=== PATIENT | female | born 1995 | race Two or more races ===

== ENCOUNTER 2019-11-23 09:16 | Emergency (ER) | payer SELFPAY ==
[~2019-11-23] VITALS: Ht 157.5 cm; Wt 61.2 kg
[2019-11-23 09:18] VITALS: BP 110/70
--- NOTE | 2019-11-23 09:19 | NUR ---
ED Nurse Note: Pt brought in by ambulance [id number] from home c/o lower back pain for 3 days. Unk cause, denies trauma. Takes advil for pain with no relief. Pt. aaox4. ambulatory. no s/s of acute dsitress noted
[2019-11-23] MEDS ORDERED: ROBAXIN-750750 MG PO (09:21)
[2019-11-23] MEDS ORDERED: IBUPROFEN600 M1 ORAL (09:21)
[2019-11-23] MEDS ORDERED: LIDODERM700 M1 TOPIC (09:21)
--- NOTE | 2019-11-23 09:28 | Emergency Room Report ---
History of Present Illness General Chief Complaint: Back Pain-No Injury Source: Patient Present Illness HPI Disclaimer: Please note that this report is being documented using [email or web address] technology. This can lead to erroneous entry secondary to incorrect interpretation by the dictating instrument. HPI: 23-year-old female presents for evaluation of back pain. Symptoms present for the past 3 days. She denies injury but complains of intermittent "contractions" in the left side of the mid back. Cannot remember any bending or twisting injury or additional strain. No history of back pain or instrumentation. Denies fever, chills, URI symptoms, cough, chest pain, shortness of breath, dominant, vomiting, diarrhea. Denies dysuria, hematuria, urgency, frequency, urinary retention, fecal incontinence. LMP was 2 weeks ago. Is able to ambulate. Denies lower extremity sensory changes. Reports full strength. Finds it difficult to stand up straight fully or to take deep breaths due to the feeling of contractions in the mid back. Took 400 mg of ibuprofen last night. States she does not like to take medications. PMH: Denies PSH: Denies Allergies: Denies Social Hx: Denies Allergies: Coded Allergies: No Known Allergies (Unverified , 11/23/19) COVID-19 Screening Contact w/high risk pt: No Recent Travel to affected area: No Experienced COVID-19 symptoms?: No Nursing Documentation-PMH Hx Asthma: Yes Review of Systems All Other Systems: negative except mentioned in HPI Physical Exam Vital Signs Date Time Temp Pulse Resp B/P (MAP) Pulse Ox O2 Delivery O2 Flow Rate FiO2 11/23/19 09:13 98.6 90 16 110/70 (83) 97 Room Air General: Awake and alert, no acute distress HEENT: NC/AT. EOMI. Resp: Normal work of breathing Skin: Intact. No abrasions, laceration or rash over the exposed skin MSK: Normal tone and bulk. Moving all extremities. No obvious deformity. Neuro: Awake and alert. Mentating appropriately Back: No tenderness, step-off or deformity in the cervical, thoracic or lumbosacral spine. There is moderate paraspinal tenderness, left greater than right, in the mid back region inferior to the scapula. The pain is more reproducible and severe in the mid scapular line. Medical Decision Making Diagnostic Impression: Primary Impression: Back pain Additional Impression: Back muscle spasm ER Course Is a 23-year-old female presenting for evaluation of atraumatic back pain for the past 3 days. Differential includes was not limited to muscular ligamentous strain, spasm, disc herniation, radiculopathy, pyelonephritis, occult injury, cauda equina syndrome, spinal epidural abscess. Clinically, she is well- appearing, ambulatory with an intact neurologic exam and no signs of cauda equina syndrome, spinal epidural abscess or other dangerous pathology. She is afebrile, noninfectious appearing and denies any symptoms of urinary tract infection. Exam and history most consistent with strain and spasm. She has reproducible tenderness in the mid scapular line on the left side though there is some on the right as well. Do not believe she requires emergent labs or imaging at this time. Will treat with NSAIDs, Robaxin, lidocaine patches, cryotherapy, heat therapy and stretching exercises. Discussed danger signs to watch out for over the next few days. Discussed appropriate dosing of medications. She will be discharged home to follow-up with PMD and return with any new or worsening symptoms. Last Vital Signs Date Time Temp Pulse Resp B/P (MAP) Pulse Ox O2 Delivery O2 Flow Rate FiO2 11/23/19 09:18 98.6 90 16 110/70 97 Room Air Disposition: HOME, SELF-CARE Condition: Stable Scripts Lidocaine Patch* (Lidoderm Patch*) 1 Each Adh..patch 1 PATCH TOPIC DAILY, #7 PATCH 0 Refills Patch(es) may remain in place for up to 12 hours in any 24-hour period. Prov: Bill Kinney MD 11/23/19 Ibuprofen* (MOTRIN*) 600 Mg Tablet 600 MG ORAL Q6H PRN for For Pain, #30 TAB 0 Refills Prov: Bill Kinney MD 11/23/19 Methocarbamol* (ROBAXIN-750*) 750 Mg Tablet 750 MG PO QID, #28 TAB 0 Refills Prov: Bill Kinney MD 11/23/19 Referrals: Kanika Garcia [facility] Departure Forms: Return to Work Return to Work Date: Dec 07, 2019 Patient Instructions: Back Exercises, Cryotherapy Additional Instructions: Take the medications as prescribed for the next few days. Soak in warm baths, continue stretching, continue to perform activities of daily living to prevent further contractions and spasm in the back. If you experience sudden weakness in your legs, loss of sensation, inability to pass urine, develop fevers or chills, lose control of your bowels or cannot manage back pain at home return to the emergency department for reevaluation. Call your primary physician as soon as possible to discuss emergency department visit. You may require reevaluation or further testing per your doctor's recommendations. Limit your contact with others as much as possible over the next 14 days. Stay minimum of 6 feet away from others, do not attend large gatherings and clean and disinfect all heavily used surfaces. Follow CDC guidelines for isolation and infection prevention. If you experience any new or worsening symptoms discussed with your doctor or return to the emergency department for reevaluation. Bill Kinney MD Nov 23, 2019 09:27
[2019-11-23] MEDS ORDERED: Methocarbamol 750mg tab ORAL ONE (09:30)
[2019-11-23] MEDS ORDERED: Ketorolac 30mg Inj IM ONE (09:30)
[2019-11-23 09:40] VITALS: BP 110/70
--- NOTE | 2019-11-23 09:40 | NUR ---
ER DISCHARGE NOTE: Patient is cleared to be discharged per ERMD, pt is aox4, on room air, with stable vital signs. pt was given dc and prescription instructions, pt was able to verbalize understanding, pt id band removed. pt is able to ambulate with steady gait. pt took all belongings.
== END 2019-11-23 09:40 | disposition home or self-care (01) ==
LOC: EDBD 09:16 → EMR 09:24
DX: M54.9 Dorsalgia, unspecified (principal); M62.830 Muscle spasm of back
CPT/HCPCS: 96372; 99283; J1885